=== PATIENT | female | born 1950 | race Caucasian/White ===

== ENCOUNTER → 2017-08-09 13:27 | Emergency (ER) | payer MEDICARE ==
[2017-08-09 13:33] VITALS: BP 172/74
== END | disposition left against medical advice (07) ==
LOC: ED 13:27
DX: R05 Cough (principal); Z53.21 Procedure and treatment not carried out due to patient leaving prior to being seen by health care provider

== ENCOUNTER 2018-12-02 13:16 | Emergency (ER) | payer MEDICARE ==
[2018-12-02 13:30] VITALS: BP 147/69
--- NOTE | 2018-12-02 13:49 | UC ---
Lower Extremity/Ankle HPI - HPI Summary HPI Summary: This is a 68-year-old female with a complaint of right foot pain for the last two weeks. She has a hx of chronic renal disease and has LEFT foot swelling and , intermittently, right foot swelling but this is the first time the right foot has been painful. The pain is located over the dorsum of the midfoot and radiates to the toes and toward the ankle. Patient denies trauma, but she was wearing a boot that felt tight in the days before these symptoms. MD: PAMELLA;147/69 06/16 pain Nurse: right foot for 2 weeks of and on has pain top of foot into ankle. pain shoots and aches up into lower leg. no known injury. 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 [facility] [place] [place] Family History Known Family History: Positive: Cardiac Disease, Hypertension, Diabetes - Social History Occupation: Retired Lives: With Family Alcohol Use: None Substance Use Type: None Smoking Status (MU): Never Smoked Tobacco Have You Smoked in the Last Year: No Review of Systems All Other Systems Reviewed And Are Negative: Yes Constitutional: Positive: Negative Skin: Positive: Negative Eyes: Positive: Negative ENT: Positive: Negative Respiratory: Positive: Negative. Negative: Shortness Of Breath, Cough Cardiovascular: Positive: Negative. Negative: Palpitations, Chest Pain Gastrointestinal: Positive: Negative. Negative: Abdominal Pain, Vomiting, Diarrhea, Nausea Genitourinary: Positive: Negative Motor: Positive: Negative Neurovascular: Positive: Negative Musculoskeletal: Positive: Negative Neurological: Positive: Negative Psychological: Positive: Negative Is Patient Immunocompromised?: No Physical Exam Triage Information Reviewed: Yes Appearance: Pain Distress - moderate right foot Vital Signs: Initial Vital Signs Temp 99.4 F 12/02/18 13:25 Pulse 79 12/02/18 13:25 Resp 18 12/02/18 13:25 BP 147/69 12/02/18 13:25 Pulse Ox 99 12/02/18 13:25 Vital Signs Reviewed: Yes Eye Exam: Normal ENT Exam: Normal Dental Exam: Normal Neck exam: Normal Neck: Positive: 1 Respiratory Exam: Normal Respiratory: Positive: Chest non-tender, Lungs clear, Normal breath sounds Cardiovascular Exam: Normal Cardiovascular: Positive: RRR, No Murmur, Pulses Normal Abdominal Exam: Normal Abdomen Description: Positive: Nontender, No Organomegaly, Soft Bowel Sounds: Positive: Present Musculoskeletal Exam: Normal Musculoskeletal: Positive: Edema @ - BILATERAL ANKLES, Other: - pain to palpation over the insertion of the extensor tendons, dorsum, right foot Neurological Exam: Normal Psychological Exam: Normal Skin Exam: Normal Lower Extremity Course/Dx - Course Course Of Treatment: 68 yo with chronic ankle swelling left, and intermittent right, c/o two weeks of pain over the dorsum of the right foot. PE: hypertension that is chronic and being treated; tenderness over the extensor tendons of the right foot; x ray negative for fx. Dx: tendonitis dorsum of right foot. I discussed condition with patient. She will try to use crutches, elevate, cam boot and follow up this week with her physician. MEDICATIONS REVIEWED; BLOOD PRESSURE ELEVATION, being treated. - Differential Dx/Diagnosis Differential Diagnosis/HQI/PQRI: Arthritis, Cellulitis, Sprain, Strain, Tendonitis Provider Diagnosis: Tendonitis of ankle or foot, Hypertension Discharge - Sign-Out/Discharge Documenting (check all that apply): Patient Departure All imaging exams completed and their final reports reviewed: Yes - Discharge Plan Condition: Stable Disposition: HOME Patient Education Materials: Tendinitis (ED) Referrals: Earnest Villa MD [Primary Care Provider] - Additional Instructions: WE DISCUSSED: PLEASE SEEK CARE AT THE EMERGENCY DEPARTMENT IF SYMPTOMS WORSEN OR IF NEW SYMPTOMS DEVELOP. FOLLOW UP WITH YOUR PRIMARY CARE PHYSICIAN IF CONDITION CONTINUES BEYOND 3 DAYS WITHOUT IMPROVEMENT. YOUR DIAGNOSIS IS: TENDONITIS OF THE EXTENSOR TENDONS ON THE TOP OF YOUR RIGHT FOOT YOUR PRESCRIPTION RECOMMENDATION IS: none OTHER INSTRUCTIONS: Use crutches; elevate; delia wrap; warm water soaks in morning; for pain after standing or walking, elevate and use ice for a few minutes to the area. - Billing Disposition and Condition Condition: STABLE Disposition: Home
== END 2018-12-02 14:59 | disposition home or self-care (01) ==
LOC: UCEAST 13:16
DX: M77.51 Other enthesopathy of right foot and ankle (principal); I12.9 Hypertensive chronic kidney disease with stage 1 through stage 4 chronic kidney disease, or unspecified chronic kidney disease; N18.3 Chronic kidney disease, stage 3 (moderate)
CPT/HCPCS: 99212; G0463

== ENCOUNTER 2023-05-11 12:00 | Observation (INO) ==
[2023-05-11] MEDS ORDERED: Furosemide 40 mg/4 ml IV VIAL IV SLOW PU ONE (12:53)
[2023-05-11] MEDS ORDERED: Nitroglycerin 0.2 mg/hr PATCH (5 mg) TRANSDERM ONE (12:54)
[2023-05-11 13:02] LABS: ABS Lymphocytes 1.3 10^3/uL (1.0-4.8); ABS Monocytes 0.6 10^3/uL (0.0-0.9); ABS Neutrophils 7.9 10^3/uL (1.5-7.6); ABS Nucleated RBC 0.01 10^3/ul; Eosinophil % 0.5 %; Hematocrit 36.4 % (35-45); Hemoglobin 12.6 g/dL (11.5-14.3); Lymphocyte % 12.8 %; Mean Corpuscular Hgb Conc 34.7 g/dL (31-36); Mean Corpuscular Volume 89.3 fL (80-97); Mean Platelet Volume 9.3 fL (7.5-11.2); Nucleated Red Blood Cells % 0.1 /100 WBC (0.0-0.4); Platelet Count 317 10^3/uL (150-450); Red Blood Count 4.07 10^6/uL (3.63-4.92); Red Cell Distribution Width 13.2 % (12-17); White Blood Count 9.8 10^3/uL (3.8-11.8)
[2023-05-11 13:10] LABS: Albumin 3.6 g/dL (3.2-5.2); Creatinine, Serum 1.05 mg/dL (0.51-0.95); Globulin 3.7 g/dL (2-4); Potassium 3.8 mmol/L (3.5-5.0); Total Bilirubin 1.1 mg/dL (0.2-1.0); Total Protein 7.3 g/dL (6.4-8.9); eGFR CKD-EPI 56.8 (>60)
[2023-05-11 14:13] LABS: High Sensitivity Troponin 1 Hr 115 pg/mL (<15)
[2023-05-11] MEDS: CMCS: Febuxostat 40 mg TAB (NF) PO SCH (15:42)
[2023-05-11] MEDS ORDERED: cloNIDine 0.3 MG PATCH 0.3 MG/24 HR 7 DAY PATCH TRANSDERM SCH (16:00)
[2023-05-11] MEDS ORDERED: Enoxaparin 40 MG/0.4 ML SYR SUBCUT SCH (16:00)
[2023-05-12 06:02] LABS: ABS Eosinophils 0.1 10^3/uL (0.0-0.5); ABS Lymphocytes 1.3 10^3/uL (1.0-4.8); ABS Monocytes 0.7 10^3/uL (0.0-0.9); ABS Neutrophils 7.5 10^3/uL (1.5-7.6); Eosinophil % 0.9 %; Hematocrit 33.9 % (35-45); Lymphocyte % 13.5 %; Mean Corpuscular Hemoglobin 31.8 pg (27-33); Mean Corpuscular Hgb Conc 35.4 g/dL (31-36); Mean Corpuscular Volume 89.8 fL (80-97); Mean Platelet Volume 9.2 fL (7.5-11.2); Platelet Count 296 10^3/uL (150-450); Red Blood Count 3.78 10^6/uL (3.63-4.92); Red Cell Distribution Width 13.1 % (12-17); White Blood Count 9.7 10^3/uL (3.8-11.8)
[2023-05-12 06:24] LABS: Calcium 8.6 mg/dL (8.6-10.3); Creatinine, Serum 0.99 mg/dL (0.51-0.95); Magnesium 1.9 mg/dL (1.9-2.7); Potassium 3.4 mmol/L (3.5-5.0)
[2023-05-12] MEDS ORDERED: Potassium EFFERVES 25 meq TAB PO ONE (09:03)
[2023-05-12] MEDS: CMCS: Febuxostat 40 mg TAB (NF) PO SCH (11:10)
[2023-05-12] MEDS: Potassium EFFERVES 25 meq TAB PO SCH ×2 (12:16→15:00)
[2023-05-12 14:28] VITALS: BP 124/57
[2023-05-14 00:58] LABS: IgG Immunoblot Negative (Negative); IgM Immunoblot Positive (Negative)
[2023-05-15 16:38] LABS: Anaplasma phagocytophilum Negative (Negative); B. miyamotoi PCR, B Negative (Negative); Babesia divergens/MO-1 Negative (Negative); Babesia ducani Negative (Negative); Ehrlichia chaffeensis Negative (Negative); Ehrlichia ewingii/canis Negative (Negative); Ehrlichia muris eauclairensis Negative (Negative)
== END 2023-05-12 15:55 | disposition home or self-care (01) ==
LOC: EDHOLD 12:00 → ED 12:00 → SUATTDRO 13:55 → MEDTELE 15:56
PROVIDERS: ADMIT Internal Medicine; ATTEND Internal Medicine